=== PATIENT | female | born 1935 | race Caucasian/White ===

== ENCOUNTER → 2016-05-06 | Outpatient (CLI) | payer MEDICARE, OTHER | END | disposition home or self-care (01) | LOC: GMAM 14:21 | PROVIDERS: ATTEND Family Medicine | DX: E04.2 Nontoxic multinodular goiter (principal); E55.9 Vitamin D deficiency, unspecified; E53.8 Deficiency of other specified B group vitamins ==

== ENCOUNTER 2016-07-21 15:26 | Emergency (ER) | payer MEDICARE, OTHER ==
[2016-07-21 16:02] VITALS: TEMP 98
--- NOTE | 2016-07-21 17:06 | ED.PDOC ---
History of Present Illness - General Chief Complaint: General Stated Complaint: nausea,dizziness Time Seen by Provider: 07/21/16 17:05 Source: patient Exam Limitations: no limitations - History of Present Illness Initial Comments: Olimpia Man 81 y/o female stated that she had been feeling weak and dizzy today ,no appetite feeling nauseated had history of candidal esophagitis 6mos ago treated by gi specialist got better and also she had been watching her diet with low sugar and low salt.Denies chronic medical problem.She has hiatal hernia gerd. Timing/Duration: 24 hours Severity: moderate Worsening Factors: nothing Associated Symptoms: loss of appetite Allergies/Adverse Reactions: Allergies Amoxicillin Allergy (Verified 10/24/15 00:11) Levofloxacin [From Levaquin] Allergy (Verified 10/24/15 00:11) Statins Allergy (Verified 10/24/15 00:11) Home Medications: Ambulatory Orders Nitrofurantoin Monohydrate Mac [Macrobid] 100 mg PO BID #10 cap 07/21/16 Review of Systems - Review of Systems Constitutional: States: no symptoms reported EENTM: States: no symptoms reported Respiratory: States: no symptoms reported Cardiology: States: no symptoms reported Gastrointestinal/Abdominal: States: no symptoms reported, see HPI Genitourinary: States: other - slight burning on urination Musculoskeletal: States: no symptoms reported Skin: States: no symptoms reported Neurological: States: no symptoms reported Endocrine: States: no symptoms reported Hematologic/Lymphatic: States: no symptoms reported Past Medical History (General) - Patient Medical History Hx Seizures: No Hx Stroke: No Hx Dementia: No Hx Asthma: No Hx of COPD: No Hx Cardiac Disorders: No Hx Congestive Heart Failure: No Hx Pacemaker: No Hx Hypertension: Yes Hx Thyroid Disease: No Hx Diabetes: No Hx Gastroesophageal Reflux: Yes Hx Renal Disease: No Hx Cancer: No Hx of HIV: No Hx Hepatitis C: No Hx MRSA: No Surgical History: other - esophageal dilatation,egd,hemorrhoidectomy - Vaccination History Hx Tetanus, Diphtheria Vaccination: Yes Hx Influenza Vaccination: - unknown Hx Pneumococcal Vaccination: Yes - Social History Hx Tobacco Use: Yes Hx Chewing Tobacco Use: No Hx Alcohol Use: No Hx Substance Use: No Hx Substance Use Treatment: No Hx Depression: No Hx Physical Abuse: No Hx Emotional Abuse: No Hx Suspected Abuse: No - Female History Patient : No Family Medical History - Family History Mother Living Status: Cause of : leukemia Hx Family Cancer: Yes - acute leukemia Physical Exam - Physical Exam General Appearance: Alert, No apparent distress Eye Exam: bilateral normal Ears, Nose, Throat: hearing grossly normal, normal ENT inspection, normal pharynx Neck: non-tender, full range of motion, supple Respiratory: chest non-tender, lungs clear, normal breath sounds Cardiovascular/Chest: normal peripheral pulses, regular rate, rhythm, no edema, no murmur Peripheral Pulses: radial,right: 2+, radial,left: 2+ Gastrointestinal/Abdominal: normal bowel sounds, non tender, soft Back Exam: normal inspection, no CVA tenderness, no vertebral tenderness Extremity: normal range of motion, non-tender Neurologic: no motor/sensory deficits, alert, normal mood/affect, oriented x 3 Skin Exam: normal color, warm/dry Lymphatic: no adenopathy Progress - Results/Orders Results/Orders: Vital Signs - 8 hr 07/21/16 07/21/16 15:58 18:23 Temperature 98 F Pulse Rate [ 78 67 Right Brachial] Respiratory 16 16 Rate Blood Pressure 123/60 155/65 [Right Arm] O2 Sat by Pulse 95 100 Oximetry 07/21/16 18:30 URINE CULTURE W/COLONY COUNT Stat Laboratory Results WBC 7.1 K/mm3 (4.8-10.8) 07/21/16 17:15 RBC 4.77 M/mm3 (4.20-5.40) 07/21/16 17:15 Hgb 14.0 gm/dL (12.0-16.0) 07/21/16 17:15 Hct 42.8 % (36.0-47.0) 07/21/16 17:15 MCV 89.8 fl (81.0-99.0) 07/21/16 17:15 MCH 29.3 pg (27.0-31.0) 07/21/16 17:15 MCHC 32.6 g/dL (33.0-37.0) L 07/21/16 17:15 RDW 14.9 % (11.5-14.5) H 07/21/16 17:15 Plt Count 213 K/mm3 (130-400) 07/21/16 17:15 MPV 9.7 fl (7.40-10.4) 07/21/16 17:15 Absolute Neuts (auto) 4.40 K/uL (1.8-6.8) 07/21/16 17:15 Absolute Lymphs (auto) 2.10 K/uL (1.0-3.4) 07/21/16 17:15 Absolute Monos (auto) 0.40 K/uL (0.2-0.8) 07/21/16 17:15 Absolute Eos (auto) 0.20 K/uL (0.0-0.4) 07/21/16 17:15 Absolute Basos (auto) 0.10 K/uL (0.0-0.1) 07/21/16 17:15 Neutrophils % 61.7 % (42.0-78.0) 07/21/16 17:15 Lymphocytes % 28.9 % (20.0-50.0) 07/21/16 17:15 Monocytes % 5.9 % (2.0-9.0) 07/21/16 17:15 Eosinophils % 2.2 % (1.0-5.0) 07/21/16 17:15 Basophils % 1.3 % (0.0-2.0) 07/21/16 17:15 Sodium 141 mmol/L (135-145) 07/21/16 17:15 Potassium 3.6 mmol/L (3.6-5.0) 07/21/16 17:15 Chloride 106 mmol/L (101-111) 07/21/16 17:15 Carbon Dioxide 28 mmol/L (21-31) 07/21/16 17:15 Anion Gap 10.6 (12-18) L 07/21/16 17:15 BUN 17 mg/dL (7-18) 07/21/16 17:15 Creatinine 0.71 mg/dL (0.6-1.3) 07/21/16 17:15 BUN/Creatinine Ratio 23.9 (10-20) H 07/21/16 17:15 Random Glucose 104 mg/dL (70-105) 07/21/16 17:15 Serum Osmolality 283.1 mOsm/L (275-295) 07/21/16 17:15 Calcium 9.1 mg/dL (8.4-10.2) 07/21/16 17:15 Total Bilirubin 0.5 mg/dL (0.2-1.0) 07/21/16 17:15 AST 18 IU/L (10-42) 07/21/16 17:15 ALT 13 IU/L (10-60) 07/21/16 17:15 Alkaline Phosphatase 58 IU/L (42-121) 07/21/16 17:15 Serum Total Protein 7.5 gm/dL (6.4-8.2) 07/21/16 17:15 Albumin 4.1 g/dl (3.2-5.5) 07/21/16 17:15 Globulin 3.4 gm/dL (2.3-3.5) 07/21/16 17:15 Albumin/Globulin Ratio 1.2 (1.1-1.9) 07/21/16 17:15 Lipase 25 U/L (22-51) 07/21/16 17:15 TSH 3.28 uIU/mL (0.34-5.60) 07/21/16 17:15 Urine Color Yellow (Yellow) 07/21/16 18:30 Urine Appearance Cloudy (Clear) 07/21/16 18:30 Urine pH 7.0 (4.5-7.8) 07/21/16 18:30 Ur Specific [place] 1.020 (1.005-1.030) 07/21/16 18:30 Urine Protein 30 mg/dL 07/21/16 18:30 Urine Glucose (UA) Negative mg/dL (Negative) 07/21/16 18:30 Urine Ketones 15 mg/dL (NEGATIVE) H 07/21/16 18:30 Urine Blood Trace-intact (Negative) H 07/21/16 18:30 Urine Nitrite Negative 07/21/16 18:30 Urine Bilirubin Small (NEGATIVE) H 07/21/16 18:30 Urine Urobilinogen 1.0 mg/dL (0.2-1.0) 07/21/16 18:30 Ur Leukocyte Esterase Small (Negative) H 07/21/16 18:30 Urine RBC 0-1 /hpf 07/21/16 18:30 Urine WBC 10-20 /hpf H 07/21/16 18:30 Ur Epithelial Cells 1-3 /hpf 07/21/16 18:30 Urine Bacteria 4+ H 07/21/16 18:30 Departure - Departure Clinical Impression: Dizziness, Malaise and fatigue Urinary tract infection Qualifiers: Urinary tract infection type: site unspecified Hematuria presence: without hematuria Qualified Code(s): N39.0 - Urinary tract infection, site not specified Time of Disposition: 19:09 Disposition: Discharge to Home or Self Care Condition: Good Departure Forms: ED Discharge - Pt. Copy, Patient Portal Self Enrollment Instructions: Bladder Infection (Alternative Therapy), DI for Urinary Tract Infection (UTI) Referrals: Carlitos Kent MD [Primary Care Provider] - 1-2 Weeks Prescriptions: Nitrofurantoin Monohydrate Mac [Macrobid] 100 mg PO BID #10 cap Home Medications: Ambulatory Orders Nitrofurantoin Monohydrate Mac [Macrobid] 100 mg PO BID #10 cap 07/21/16 Additional Instructions: Follow up with primary md 07/27/2016 call for appointment as needed
[2016-07-21] MEDS ORDERED: SODIUM CHLORIDE 0.9% 1000ML 1,000 ML IVS ONE (17:07)
[2016-07-21] MEDS ORDERED: ONDANSETRON INJ 4 MG/2 ML VIAL IV ONE (17:07)
[2016-07-21 18:24] VITALS: BP 155/65; O2SAT 100
[2016-07-21] MEDS ORDERED: NITROFURANTOIN MONO (ER DISP) 100 MG CAP PO ONE (19:09)
== END 2016-07-21 19:34 | disposition home or self-care (01) ==
LOC: ER 15:26
DX: N39.0 Urinary tract infection, site not specified (principal); R42 Dizziness and giddiness; R53.81 Other malaise; I10 Essential (primary) hypertension; K21.9 Gastro-esophageal reflux disease without esophagitis; Z87.891 Personal history of nicotine dependence; Z88.3 Allergy status to other anti-infective agents; Z88.8 Allergy status to other drugs, medicaments and biological substances
CPT/HCPCS: 36415; 80053; 81001; 83690; 84443; 85025; 87086; J2405; J7030

== ENCOUNTER → 2016-08-04 | Outpatient (CLI) | payer MEDICARE, OTHER | LOC: GMAM 14:44 | PROVIDERS: ATTEND Family Medicine | DX: N30.00 Acute cystitis without hematuria (principal) ==

== ENCOUNTER → 2016-08-11 | Outpatient (CLI) | payer MEDICARE, OTHER | END | disposition home or self-care (01) | LOC: GMAM 14:49 | PROVIDERS: ATTEND Family Medicine | DX: E04.2 Nontoxic multinodular goiter (principal) ==

== ENCOUNTER 2017-01-20 17:40 | Emergency (ER) | payer MEDICARE, OTHER ==
[2017-01-20 17:54] VITALS: BP 150/89; TEMP 97.8; O2SAT 95
--- NOTE | 2017-01-20 17:57 | ED.PDOC ---
History of Present Illness - General Chief Complaint: Upper Extremity Injury Stated Complaint: right hand and wrist pain Time Seen by Provider: 01/20/17 17:54 Source: patient, RN notes reviewed, Vital Signs reviewed Exam Limitations: no limitations - History of Present Illness Initial Comments: Patient comes to the ER with c/o right wrist pain after a fall. Patient reports she fell backwards onto her outstretched hand. No numbness, tingling or weakness. Occurred: just prior to arrival Pain - Upper Extremity: moderate: Wrist, right Method of Injury: fell Improving Factors: rest Worsening Factors: movement Allergies/Adverse Reactions: Allergies Amoxicillin Allergy (Verified 10/24/15 00:11) Levofloxacin [From Levaquin] Allergy (Verified 10/24/15 00:11) Statins Allergy (Verified 10/24/15 00:11) Home Medications: Ambulatory Orders Tramadol HCl 50 mg PO Q6HR PRN #15 tab 01/20/17 Review of Systems - Review of Systems Constitutional: States: no symptoms reported Respiratory: States: no symptoms reported Cardiology: States: no symptoms reported Musculoskeletal: States: see HPI, joint pain - right wrist Skin: States: no symptoms reported Neurological: States: no symptoms reported. Denies: numbness, paresthesia, tingling, weakness All other Systems: No Change from Baseline Past Medical History (General) - Patient Medical History Hx Seizures: No Hx Stroke: No Hx Dementia: No Hx Asthma: No Hx of COPD: No Hx Cardiac Disorders: No Hx Congestive Heart Failure: No Hx Pacemaker: No Hx Hypertension: Yes Hx Thyroid Disease: No Hx Diabetes: No Hx Gastroesophageal Reflux: Yes Hx Renal Disease: No Hx Cancer: No Hx of HIV: No Hx Hepatitis C: No Hx MRSA: No - Vaccination History Hx Tetanus, Diphtheria Vaccination: Yes Hx Influenza Vaccination: No Hx Pneumococcal Vaccination: Yes - Social History Hx Tobacco Use: Yes Hx Chewing Tobacco Use: No Hx Alcohol Use: No Hx Substance Use: No Hx Substance Use Treatment: No Hx Depression: No Hx Physical Abuse: No Hx Emotional Abuse: No Hx Suspected Abuse: No - Female History Patient : No Family Medical History - Family History Mother Living Status: Cause of : leukemia Hx Family Cancer: Yes - acute leukemia Physical Exam - Physical Exam General Appearance: Alert, Comfortable, No apparent distress, Well Developed, Well Groomed, Well Hydrated, Well Nourished Cardiovascular/Respiratory: normal peripheral pulses Elbow/Forearm Exam: normal inspection, non-tender, no evidence of injury, normal ROM Wrist Exam: bone tenderness - across dorsal R wrist - Radial aspect> Ulnar aspect, limited ROM - due to pain, soft tissue tenderness, swelling Hand Exam: normal inspection, non-tender, no evidence of injury - Brisk capillary refill all fingers of R hand, normal ROM Neuro/Tendon: normal sensation, normal motor functions, normal tendon functions , responds to pain, no evidence tendon injury Mental Status: alert, oriented x 3 Skin Exam: normal color, warm/dry Comments: Vital Signs 01/20/17 17:50 Temperature 97.8 F Pulse Rate [ 77 Left Brachial] Respiratory 20 Rate Blood Pressure 150/89 [Left Arm] O2 Sat by Pulse 95 Oximetry Progress - EKG/XRAY/CT XRAY: R wrist: minimally impacted and cominuted fracture of distal radius per Radiologist Procedures - Splinting Right Wrist Pre-Made Type: Wrist cock-up splint Splint: wrist Pre-Proc Neuro Vasc Exam: normal Post-Proc Neuro Vasc Exam: normal Departure - Departure Clinical Impression: Closed fracture of right distal radius Qualifiers: Encounter type: initial encounter Fracture morphology: other fracture Qualified Code(s): S52.591A - Other fractures of lower end of right radius, initial encounter for closed fracture Time of Disposition: 18:31 Disposition: Discharge to Home or Self Care Condition: Good Departure Forms: ED Discharge - Pt. Copy, Patient Portal Self Enrollment Instructions: DI for Wrist Fracture Diet: resume usual diet Activity: increase activity as tolerated Referrals: Chema Collins MD [Active Staff] - 1-5 Days Prescriptions: Tramadol HCl 50 mg PO Q6HR PRN #15 tab PRN Reason: Moderate To Severe Pain Home Medications: Ambulatory Orders Tramadol HCl 50 mg PO Q6HR PRN #15 tab 01/20/17 Additional Instructions: Wear splint until follow up with Dr. Collins
--- NOTE | 2017-01-20 18:12 | RAD ---
EXAM DESCRIPTION: Wrist,Right 3 Views CLINICAL HISTORY: Pain s/p fall on outstretched hand COMPARISON: None. TECHNIQUE: 3 views right FINDINGS: The wrist is osteopenic. The exam demonstrates an impacted fracture of the distal radius. The fracture is minimally comminuted. No significant accumulation is observed. There is extension of the fracture into the distal articular surface. IMPRESSION: A minimally impacted fracture of the distal radius is observed. Its comminuted and there is extension into the distal radial articular surface. Electronically signed by: Mook Lora MD 01/20/2017 6:11 PM [facility]
[2017-01-20] MEDS ORDERED: traMADol HCL 50 MG TAB PO ONE (18:17)
[2017-01-20] MEDS ORDERED: traMADol HCL 50 MG (ER DISP) # 6 TABS PO ONE (18:30)
== END 2017-01-20 18:41 | disposition home or self-care (01) ==
LOC: ER 17:40
DX: S52.591A Other fractures of lower end of right radius, initial encounter for closed fracture (principal); I10 Essential (primary) hypertension; K21.9 Gastro-esophageal reflux disease without esophagitis; Z87.891 Personal history of nicotine dependence; Z88.8 Allergy status to other drugs, medicaments and biological substances; Z88.3 Allergy status to other anti-infective agents

== ENCOUNTER → 2017-01-28 | Outpatient (CLI) | payer MEDICARE, OTHER ==
--- NOTE | 2017-01-30 13:13 | RAD ---
EXAM DESCRIPTION: Wrist,Right 3 Views CLINICAL HISTORY: 81 years Female, PAIN IN RIGHT WRIST COMPARISON: January 20, 2017 FINDINGS: There is a nondisplaced, slightly comminuted impaction type fracture of the distal right radius, which appears about the same as on the previous study, showing no significant interval bony healing. There is no other evidence of acute fracture or dislocation. Joint spaces appear maintained. Slight regional soft tissue swelling appears to be present. IMPRESSION: Stable appearing distal right radial fracture. Electronically signed by: Tom Hatch 01/30/2017 1:12 PM [facility]
== END ==
LOC: RAD 08:44
PROVIDERS: ATTEND Orthopaedic Surgery
DX: S52.501A Unspecified fracture of the lower end of right radius, initial encounter for closed fracture (principal)

== ENCOUNTER 2017-01-31 03:49 | Emergency (ER) | payer MEDICARE, OTHER ==
[2017-01-31 04:04] VITALS: TEMP 98.5
--- NOTE | 2017-01-31 04:38 | ED.PDOC ---
History of Present Illness - General Chief Complaint: Upper Extremity Injury Stated Complaint: right arm hurts, pain meds aren't working Time Seen by Provider: 01/31/17 04:28 Source: patient Exam Limitations: no limitations Additional Information: PT SUSTAINED FX TO R FOREARM. SEEN HERE THEN HAS HAD F/U WITH ORTHO. C/O INCREASING PAIN PAST 3-4 DAYS. COULD NOT SLEEP TONIGHT - History of Present Illness Timing/Duration: gone - 3 DAYS Severity: moderate Improving Factors: nothing Worsening Factors: nothing Associated Symptoms: denies symptoms Allergies/Adverse Reactions: Allergies Amoxicillin Allergy (Verified 01/31/17 04:05) Levofloxacin [From Levaquin] Allergy (Verified 01/31/17 04:05) Statins Allergy (Verified 01/31/17 04:05) Home Medications: Ambulatory Orders Tramadol HCl 50 mg PO Q6HR PRN #15 tab 01/20/17 Acetaminophen W/ Codeine [Tylenol W/ CODEINE #3] 1 ea PO Q4HR PRN #15 01/21/17 Review of Systems - Review of Systems Constitutional: Denies: chills, fever Gastrointestinal/Abdominal: Denies: nausea, vomiting Musculoskeletal: States: other - L WRIST PAIN. Denies: back pain, neck pain Skin: States: no symptoms reported Neurological: Denies: numbness, weakness Past Medical History (General) - Patient Medical History Hx Seizures: No Hx Stroke: No Hx Dementia: No Hx Asthma: No Hx of COPD: No Hx Cardiac Disorders: No Hx Congestive Heart Failure: No Hx Pacemaker: No Hx Hypertension: Yes Hx Thyroid Disease: No Hx Diabetes: No Hx Gastroesophageal Reflux: Yes Hx Renal Disease: No Hx Cancer: No Hx of HIV: No Hx Hepatitis C: No Hx MRSA: No Surgical History: no surgical history - Vaccination History Hx Tetanus, Diphtheria Vaccination: No Hx Influenza Vaccination: No Hx Pneumococcal Vaccination: Yes - Social History Hx Tobacco Use: Yes Hx Chewing Tobacco Use: No Hx Alcohol Use: Yes - social Hx Substance Use: No Hx Substance Use Treatment: No Hx Depression: No Feels Threatened In Home Enviroment: No Feels Threatened In a Relationship: No Hx Physical Abuse: No Hx Emotional Abuse: No Hx Suspected Abuse: No - Female History Patient : No Family Medical History - Family History Mother Living Status: Cause of : leukemia Hx Family Cancer: Yes - acute leukemia Physical Exam - Physical Exam General Appearance: Alert, Well Developed, Well Nourished, Other - UNCOMFORTABLE BUT NAD Eye Exam: bilateral normal Neck: full range of motion, normal inspection, other - NTTP Peripheral Pulses: radial,right: 2+ Back Exam: normal inspection, no vertebral tenderness Extremity: other - SWELLING R WRIST WITH TTP, NO ECCHYMOSIS, MINIMAL SWELLING, NO DEFORMITY, NVI Neurologic: no motor/sensory deficits, oriented x 3 Skin Exam: normal color, warm/dry, other - NO ECCHYMOSIS Progress - Progress Progress: 01/31/17 05:49 FEELS BETTER. - EKG/XRAY/CT XRAY: WRIST: COMMINUTED FX, STABLE. Departure - Departure Clinical Impression: Distal radius fracture, right Qualifiers: Encounter type: subsequent encounter Fracture type: closed Fracture morphology : Colles' Fracture healing: with routine healing Qualified Code(s): S52.531D - Colles' fracture of right radius, subsequent encounter for closed fracture with routine healing ICD-10 Supporting Text: SPLINT MALFUNCTION Time of Disposition: 05:52 Disposition: Discharge to Home or Self Care Condition: Good Departure Forms: ED Discharge - Pt. Copy, Patient Portal Self Enrollment Instructions: DI for Arm Pain, DI for Forearm Fracture Referrals: Carlitos Kent MD [Primary Care Provider] - 1-2 Weeks Home Medications: Ambulatory Orders Tramadol HCl 50 mg PO Q6HR PRN #15 tab 01/20/17 Acetaminophen W/ Codeine [Tylenol W/ CODEINE #3] 1 ea PO Q4HR PRN #15 01/21/17
[2017-01-31] MEDS: fentaNYL CITRATE INJ 50 MCG/ML AMP IM ONE (04:40)
--- NOTE | 2017-01-31 04:56 | RAD ---
EXAM DESCRIPTION: Wrist,Right 3 Views CLINICAL HISTORY: forearm fx with onset of increased pain COMPARISON: 01/28/2017 FINDINGS: Redemonstrated impacted comminuted intra-articular fracture of the distal right radius with soft tissue swelling. No ulnar styloid fracture. No new fractures. Osteopenia. IMPRESSION: Stable impacted comminuted intra-articular fracture of the distal right radius. Electronically signed by: Nestor Michelle 01/31/2017 4:54 AM [facility]
[2017-01-31] MEDS: traMADol HCL 50 MG (ER DISP) # 6 TABS PO ONE (06:08)
[2017-01-31 06:25] VITALS: BP 132/80; O2SAT 96
== END 2017-01-31 06:20 | disposition home or self-care (01) ==
LOC: ER 03:49
DX: S52.531D Colles' fracture of right radius, subsequent encounter for closed fracture with routine healing (principal)
CPT/HCPCS: 73110; J3010

== ENCOUNTER → 2017-03-02 | Outpatient (CLI) | payer MEDICARE, OTHER ==
--- NOTE | 2017-03-02 09:26 | RAD ---
EXAM DESCRIPTION: Wrist,Right 3 Views CLINICAL HISTORY: 81 years, Female, CLOSED FX OF DISTAL END OF RADIUS COMPARISON: January 31, 2017 TECHNIQUE: AP/ lateral/ oblique views of the right wrist. FINDINGS: An encircling fiberglass cast surrounds the right wrist and hand with essentially stable alignment of the distal radial fracture with very slight dorsal angulation that is unchanged from prior study. Through the fiberglass cast residual lucency particularly on the oblique view involving a portion of the distal radius at its ulnar aspect and extending into the articular surface consistent with incomplete bony union is evident. Possibility of impaction of a small fragment of the articular surface on one of the three views obtained or a small area of subcortical osteonecrosis should also be considered on the oblique view. IMPRESSION: 1. Stable right wrist with surrounding fiberglass cast with incompletely healed intra-articular distal radial fracture with stable minimal dorsal angulation. Lucency deep to the articular surface suggests either a small impacted fragment of the articular surface or a area of subcortical osteonecrosis. Electronically signed by: Carlitos Barakat MD 03/02/2017 9:25 AM [facility]
== END | disposition home or self-care (01) ==
LOC: RAD 08:27
PROVIDERS: ATTEND Orthopaedic Surgery
DX: S52.501D Unspecified fracture of the lower end of right radius, subsequent encounter for closed fracture with routine healing (principal)

== ENCOUNTER → 2017-06-09 | Outpatient (CLI) | payer MEDICARE, OTHER | LOC: GMAM 10:34 | PROVIDERS: ATTEND Family Medicine | DX: E53.8 Deficiency of other specified B group vitamins (principal); E55.9 Vitamin D deficiency, unspecified; I10 Essential (primary) hypertension ==

== ENCOUNTER → 2017-08-23 | Outpatient (CLI) | payer MEDICARE, OTHER ==
--- NOTE | 2017-08-23 15:16 | CT ---
EXAM DESCRIPTION: Abdomen/Pelvis w/wo Contrast CLINICAL HISTORY: 82 years Female, LLL PAIN COMPARISON: None available. TECHNIQUE: Contiguous 3 mm axial images were obtained from the lung bases to the level of the proximal femora before and after the administration of intravenous and oral contrast. Sagittal and coronal reconstructions were reviewed. FINDINGS: THORAX: The imaged lower thorax demonstrates no gross abnormality. LIVER: The liver demonstrates normal size and density with no intrahepatic biliary ductal dilatation or focal masses. GALLBLADDER: Mildly distended with no gross abnormality. PANCREAS: Appears normal with no cystic or solid lesions. SPLEEN: Normal ADRENAL GLANDS: Normal with no nodules or masses. KIDNEYS: Both kidneys enhance symmetrically with no hydronephrosis or nephrolithiasis or perinephric fluid collections. A simple cyst is noted in the interpolar region of the left kidney. No focal masses are identified. The visualized ureters appear grossly unremarkable. STOMACH: Moderate sized paraesophageal hernia is noted. SMALL BOWEL: The small bowel loops demonstrate variable degrees of distention with no abnormal dilatation or other signs to suggest bowel obstruction. LARGE BOWEL: Numerous diverticula are noted throughout the colon, significant in the sigmoid portion. No evidence of acute inflammation. The appendix is well-visualized and appears normal No evidence of free intraperitoneal air or fluid. RETROPERITONEUM: The abdominal aorta is nonaneurysmal with moderate atherosclerosis. The inferior vena cava is normal in size and caliber. No abnormally enlarged retroperitoneal lymph nodes are identified. URINARY BLADDER:The urinary bladder is well-distended with no gross abnormality. The uterus and adnexa appear normal. ADDITIONAL FINDINGS: None. BONES: Mild degenerative changes are identified in the visualized bones.No evidence of osteophytic or osteoblastic lesions. IMPRESSION: 1. Moderate-sized paraesophageal hernia. 2. Significant colonic diverticulosis, worse in the sigmoid portion. This exam was performed according to our departmental dose-optimization program, which includes automated exposure control, adjustment of the mA and/or kV according to patient size and/or use of iterative reconstruction technique. Electronically signed by: Lexie Shaikh MD 08/23/2017 3:14 PM CDT
== END ==
LOC: CT 13:42
PROVIDERS: ATTEND Family Medicine
DX: R10.32 Left lower quadrant pain (principal); K44.9 Diaphragmatic hernia without obstruction or gangrene; K57.30 Diverticulosis of large intestine without perforation or abscess without bleeding

== ENCOUNTER → 2018-01-06 | Outpatient (CLI) | payer MEDICARE, OTHER | LOC: GMAM 11:27 | PROVIDERS: ATTEND Family Medicine | DX: E53.8 Deficiency of other specified B group vitamins (principal); E55.9 Vitamin D deficiency, unspecified ==

== ENCOUNTER → 2018-01-10 | Outpatient (CLI) | payer MEDICARE, OTHER | LOC: GMAM 14:45 | PROVIDERS: ATTEND Family Medicine | DX: E03.9 Hypothyroidism, unspecified (principal) ==

== ENCOUNTER 2018-07-30 19:22 | Emergency (ER) | payer MEDICARE, OTHER ==
--- NOTE | 2018-07-30 19:42 | ED.PDOC ---
History of Present Illness - General Chief Complaint: Skin/Abrasion/Tear Time Seen by Provider: 07/30/18 19:27 Source: patient - History of Present Illness Initial Comments: INSECT BITE ON THE LEFT FOREARM. NOW IS ITCHING. THERE FOR A WHILE HER LEFT ARM BECAME WEAK AND SHE BECAME DIZZY. THE PATIENT THINKS IT MIGHT BE A BROWN RECLUSE SPIDER BITE. 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 Timing/Duration: yesterday Severity: mild Location: extremities Improving Factors: nothing Worsening Factors: nothing Associated Symptoms: denies symptoms Allergies/Adverse Reactions: Allergies Amoxicillin Allergy (Verified 01/31/17 04:05) Levofloxacin [From Levaquin] Allergy (Verified 01/31/17 04:05) Statins Allergy (Verified 01/31/17 04:05) Home Medications: Ambulatory Orders Tramadol HCl 50 mg PO Q6HR PRN #15 tab 01/20/17 Acetaminophen W/ Codeine [Tylenol W/ CODEINE #3] 1 ea PO Q4HR PRN #15 01/21/17 DiphenhydrAMINE HCL [Benadryl] 25 mg PO Q8HRS #15 cap 07/30/18 Triamcinolone 0.1% Oint [Kenalog 0.1% Ointment] 15 gm TOP BID #1 tube 07/30/18 Review of Systems - Review of Systems Constitutional: States: no symptoms reported EENTM: States: no symptoms reported Respiratory: States: no symptoms reported Cardiology: States: no symptoms reported Gastrointestinal/Abdominal: States: no symptoms reported Genitourinary: States: no symptoms reported Musculoskeletal: States: no symptoms reported Skin: States: rash Neurological: States: weakness - LEFT ARM Endocrine: States: no symptoms reported Hematologic/Lymphatic: States: no symptoms reported Past Medical History (General) - Patient Medical History Hx Seizures: No Hx Stroke: No Hx Dementia: No Hx Asthma: No Hx of COPD: No Hx Cardiac Disorders: No Hx Congestive Heart Failure: No Hx Pacemaker: No Hx Hypertension: Yes Hx Thyroid Disease: No Hx Diabetes: No Hx Gastroesophageal Reflux: Yes Hx Renal Disease: No Hx Cancer: No Hx of HIV: No Hx Hepatitis C: No Hx MRSA: No - Vaccination History Hx Tetanus, Diphtheria Vaccination: No Hx Influenza Vaccination: No Hx Pneumococcal Vaccination: Yes - Social History Hx Tobacco Use: Yes Hx Chewing Tobacco Use: No Hx Alcohol Use: Yes - social Hx Substance Use: No Hx Substance Use Treatment: No Hx Depression: No Hx Physical Abuse: No Hx Emotional Abuse: No Hx Suspected Abuse: No - Female History Patient : No Family Medical History - Family History Mother Living Status: Cause of : leukemia Hx Family Cancer: Yes - acute leukemia Physical Exam - Physical Exam General Appearance: Alert, No apparent distress, Well Developed, Well Groomed, Well Hydrated Eyes, Ears, Nose, Throat Exam: PERRL/EOMI Neck: non-tender, supple Cardiovascular/Chest: normal peripheral pulses, no edema, no gallop Respiratory: chest non-tender, lungs clear, normal breath sounds, no respiratory distress Gastrointestinal/Abdominal: normal bowel sounds, soft, no organomegaly Back Exam: normal inspection Extremity: normal range of motion, non-tender, normal inspection, swelling, other - THERE IS A HIVE ON THE VOLAR ASPECT OF THE RIGHT FORARM, SLIGHTLY INDURATED. Neurologic: no motor/sensory deficits, oriented x 3 Skin Exam: warm/dry Skin Problem Location: other - SEE ABOVE. Lymphatic: no adenopathy Departure - Departure Clinical Impression: Insect bite Qualifiers: Encounter type: initial encounter Site of insect bite: forearm Laterality: right Qualified Code(s): S50.861A - Insect bite (nonvenomous) of right forearm, initial encounter; W57.XXXA - Bitten or stung by nonvenomous insect and other nonvenomous arthropods, initial encounter Time of Disposition: 19:45 Disposition: Discharge to Home or Self Care Condition: Good Departure Forms: ED Discharge - Pt. Copy, Patient Portal Self Enrollment Diet: resume usual diet Referrals: Carlitos Kent MD [Primary Care Provider] - 1-2 Weeks Prescriptions: DiphenhydrAMINE HCL [Benadryl] 25 mg PO Q8HRS #15 cap Triamcinolone 0.1% Oint [Kenalog 0.1% Ointment] 15 gm TOP BID #1 tube Home Medications: Ambulatory Orders Tramadol HCl 50 mg PO Q6HR PRN #15 tab 01/20/17 Acetaminophen W/ Codeine [Tylenol W/ CODEINE #3] 1 ea PO Q4HR PRN #15 01/21/17 DiphenhydrAMINE HCL [Benadryl] 25 mg PO Q8HRS #15 cap 07/30/18 Triamcinolone 0.1% Oint [Kenalog 0.1% Ointment] 15 gm TOP BID #1 tube 07/30/18
[2018-07-30 19:53] VITALS: BP 174/77; TEMP 97.6; O2SAT 99
[2018-07-30] MEDS: methylPREDNISolone SODIUM SUC 40 MG/ML VIAL IM ONE (20:07)
[2018-07-30] MEDS: diphenhydrAMINE HCL 50 MG/ML VIAL IM ONE (20:07)
== END 2018-07-30 20:31 | disposition home or self-care (01) ==
LOC: ER 19:22
DX: S50.861A Insect bite (nonvenomous) of right forearm, initial encounter (principal); I10 Essential (primary) hypertension; K21.9 Gastro-esophageal reflux disease without esophagitis; W57.XXXA Bitten or stung by nonvenomous insect and other nonvenomous arthropods, initial encounter; Y92.007 Garden or yard of unspecified non-institutional (private) residence as the place of occurrence of the external cause; Z79.899 Other long term (current) drug therapy; Z87.891 Personal history of nicotine dependence; Z88.1 Allergy status to other antibiotic agents
CPT/HCPCS: J1030; J1200

== ENCOUNTER → 2020-03-14 | Outpatient (CLI) | payer MEDICARE, OTHER | LOC: GMAM 15:01 | PROVIDERS: ATTEND Family Medicine | DX: R10.84 Generalized abdominal pain (principal); R19.7 Diarrhea, unspecified ==

== ENCOUNTER → 2020-03-18 | Outpatient (CLI) | payer MEDICARE, OTHER | LOC: GMAM 12:40 | PROVIDERS: ATTEND Family Medicine | DX: R19.7 Diarrhea, unspecified (principal) ==